=== PATIENT | female | born 1955 | race Caucasian/White ===

== ENCOUNTER 2020-03-09 14:12 | Inpatient (IN) | payer MEDICAID ==
[2020-03-09 21:14] VITALS: BP 120/80
[2020-03-09] MEDS ORDERED: Magnesium Hydroxide (MOM) 30 mL UDC PO PRN (23:56)
[2020-03-09] MEDS ORDERED: Maalox 30 mL Cup PO PRN (23:56)
[2020-03-10] MEDS ORDERED: MULTIVITAMIN PO SCH (09:00)
[2020-03-10] MEDS ORDERED: FOLIC ACID PO SCH (09:00)
[2020-03-10] MEDS ORDERED: IRON PO SCH (09:00)
--- NOTE | 2020-03-10 13:26 | History and Physical ---
History of Present Illness - HPI Chief Complaint: Psychosis HPI: * Transferred from [facility] Urgent [facility] * Admitted on 5149 due to danger to others Vital Signs: Last Vital Signs Temp 99 F 03/10/20 06:13 Pulse 88 03/10/20 06:13 Resp 18 03/10/20 06:13 BP 125/75 03/10/20 06:13 Pulse Ox 96 03/10/20 06:13 Past Medical History Cardiovascular: Report: No Pertinent Hx Pulmonary: Report: No Pertinent Hx GI: Report: GERD Psych: Report: Bipolar, Schizophrenia Musculoskeletal: Report: Osteoarthritis Rheumatologic: Report: No pertinent Hx Infectious Disease: Report: No Pertinent Hx Renal/: Report: No Pertinent Hx Endocrine: Report: No Pertinent Hx Dermatology: Report: No Pertinent Hx - Past Surgical History Past Surgical History: No pertinent Hx Social History Smoke: No Alcohol: None Drugs: None Lives: Other ([facility]) - Medications Home Medications: Home Medication Medication Instructions Recorded Type Levothyroxine [Synthroid] 0.075 mg PO DAILY 03/10/20 History [place] Carbonate [[place] 600 mg PO HS 03/10/20 History Carbonate ER] Multivitamin/Iron/Folic Acid 500 mg PO DAILY 03/10/20 History [Centrum Adults Tablet] OLANZapine [ZyPREXA] 10 mg PO HS 03/10/20 History Omeprazole 20 mg PO BID 03/10/20 History Omeprazole 20 mg PO BID PRN 03/10/20 History - Allergies Allergies/Adverse Reactions: Allergies Allergy/AdvReac Type Severity Reaction Status Date / Time No Known Allergies Allergy Verified 03/09/20 21:22 Review of Systems - Review of Systems Constitutional: Report: No Significant Eyes: Report: No Significant Respiratory: Report: No Significant Cardiovascular: Report: No Significant Gastrointestinal: Report: No Significant Genitourinary: Report: No Significant Musculoskeletal: Report: No Significant Skin: Report: No Significant Neurological: Report: No Significant Physical Exam - Physical Exam HEENT: Report: Ears Nose Throat within normal limits, Pharnyx within normal limits Neck: Report: Within normal limits Cardiovascular Systems: Report: Regular, Rate and Rhythm, no murmurs noted Respiratory: Report: Clear to Auscultation of lung meyer, Breath Sounds are within normal limits Abdomen: Report: Non-tender to palpation, Bowel Sounds are within normal limits Back: Report: Inspection of back is within normal limits. Extremities: Report: Non-tender to palpation., Patient had full range of motion , No pedal edema was noted on inspection Skin: Report: Color of skin is within normal limits, Warm, Dry, No Rashes noted of the skin Neuro/Psych: Report: A+Ox3, CN II-XII intact, No motor deficit, No sensory deficit - Assessment Assessment: * OA * Varicose Veins * GERD * Hypothyroidism * Acute Psychosis * Bipolar Disorder * Schizophrenia - Plan Plan: * Admiited to [facility] * Continue home meds * Psychiatry Consult * Obtain labs on Thursday Cranial Nerve Assessment - CRANIAL NERVES alcohol swab:: Yes Distinguishes movements in peripheral field.:: Yes up, down, sideways:: Yes on forehead, cheeks and chin, chews symmetrically:: Yes FACIAL VII: upper: Frowns Symmetrically:: Yes FACIAL VII: Lower: Smiles Symmetrically:: Yes both ears:: Yes GLOSS-PHARYNGEAL IX: Has gag reflex:: Yes VAGUS X: Can make guttural sounds:: Yes ACCESSORY XI: Shrugs shoulders symmetrically:: Yes tremors or fasciculation's:: Yes - MOTOR spasticity, cogwheel, atrophy, tremor, asterixis, other: Yes - COORDINATION Finger to nose, heel to painting, PALMOA, gait, Romberg: Yes - SENSORY signs, Brudzinski, Kernig, neck rigidity:: Yes - REFLEXES Brachioradials Right:: Yes Brachioradials Left:: Yes Biceps Right:: Yes Biceps Left:: Yes Triceps Right:: Yes Triceps Left:: Yes Knee Right:: Yes Knee Left:: Yes Ankle Right:: Yes Ankle Left:: Yes Babinski Right:: No Babinski Left:: No
--- NOTE | 2020-03-10 15:21 | Psychiatric Evaluation ---
DATE OF SERVICE: 03/09/2020 IDENTIFYING DATA: The patient is a 64-year-old woman, resident of a [facility]. Information obtained by directly interviewing the patient as well as reviewing the admission papers and they are reliable. JUSTIFICATION OF HOSPITALIZATION: The patient is admitted on 5150 as a danger to others. CHIEF COMPLAINT: "There is no reason for me to be in here. I need to go back to my board and care." HISTORY OF PRESENT ILLNESS: This is the first psychiatric hospitalization to [facility] for this patient who is reported to have been diagnosed to have bipolar disorder and had been on multiple medications. The patient is going on an elaborate way to describe that she missed the appointment and she did not want to see the nurse and she states that she has been accused of being aggressive. The patient is reporting that the board and transition of care specialist has been trying to butt into her business of medical problems and she did not like it. The patient has been downplaying her screaming and yelling. During the evaluation, the patient has been getting easily upset and stating that she did not want to take the Seroquel because the Seroquel makes her to scream and yell at night time. PAST PSYCHIATRIC HISTORY: Details are not known. MEDICAL HISTORY: Physical examination is requested by Dr. Connelly. SUBSTANCE ABUSE HISTORY: Denies. SOCIAL HISTORY: The patient is a resident of a [facility]. LEGAL PROBLEMS: None at this time. STRENGTH AND ASSETS: The patient is motivated. MENTAL STATUS EXAMINATION: The patient is a 64-year-old, looking her stated age, superficially cooperative. Eye contact is poor. Mood is irritable. Affect is constricted. Insight and judgment at this time are noted to be still impaired. Impulse control is noted to be limited. The patient is reported to be screaming and yelling and has been aggressive at the [facility]. The patient is alert and oriented to time, place, person, and situation. The patient is of average intelligence. 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 DIAGNOSTIC IMPRESSION: AXIS I: Bipolar disorder, mixed with psychotic symptoms. AXIS II: None. AXIS III: As per Dr. Connelly. IMMEDIATE TREATMENT PLAN: The patient is going to be started on the Zyprexa. The patient is going to be considered for mood ____. ESTIMATED LENGTH OF STAY: 3-5 days. DISCHARGE CRITERIA: When the patient is no longer a threat to self or others. [facility]# [id number]
[2020-03-10] MEDS: Pantoprazole 40 mg EC Tab PO SCH (16:46)
[2020-03-10] MEDS: Levothyroxine 0.075 Mg Tab PO SCH (16:48)
[2020-03-10] MEDS: OLANZapine 5 mg Oral Disintegrating Tab PO SCH (20:14)
[2020-03-11] MEDS: Pantoprazole 40 mg EC Tab PO SCH ×3 (06:36→16:58)
[2020-03-11] MEDS: Multivitamin Tab PO SCH (08:40)
[2020-03-11] MEDS: Levothyroxine 0.075 Mg Tab PO SCH (08:58)
[2020-03-11 11:09] LABS: CHOLESTEROL 140 mg/dL (<200); LDL CHOLESTEROL 62 mg/dL (0-129); TRIGLYCERIDES 311 mg/dL (30-150)
--- NOTE | 2020-03-11 17:24 | Progress Notes ---
DATE: 03/11/2020 SUBJECTIVE: Staff was spoken to. The patient is interviewed. Mood is noted to be irritable. Affect is constricted. Insight and judgment at this time are noted to be still impaired. Impulse control is noted to be limited. Coping skills are noted to be limited. The patient is very angry and upset for being in here. The patient is stating that she is not willing to go to the dining area because that is filthy. The patient has been stating that she needs to have a separate room for herself. The patient is presenting with a lot of grandiose delusions. The patient has no insight into her illness. ASSESSMENT: The patient is still not able to contract for safety. PLAN: To continue the patient with the supportive therapy, encouraged the patient to verbalize the concerns rather than to act out. The patient is still having grandiose delusions. Plan to continue the patient with the supportive therapy, encouraged the patient to verbalize the concerns rather than to act out. Plan to closely monitor and encouraged the patient to verbalize the concerns rather than to act out. JOB# [id number]
[2020-03-11] MEDS: OLANZapine 5 mg Oral Disintegrating Tab PO SCH (21:21)
[2020-03-12] MEDS: Pantoprazole 40 mg EC Tab PO SCH ×2 (06:43→19:39)
[2020-03-12] MEDS: Multivitamin Tab PO SCH (09:15)
[2020-03-12 11:30] LABS: % NEUTROPHILS 51.6 % (40-70); HEMOGLOBIN 14.2 g/dL (12.0-16.0); LYMPHOCYTES % (AUTO) 37.1 % (20.5-51.5); MEAN CORPUSCULAR HEMOGLOBIN 29 pg (27-31); MEAN CORPUSCULAR HGB CONC 32 % (32-36); MEAN CORPUSCULAR VOLUME 90 fL (79.0-98.0); PLATELET COUNT 237 K/uL (130-430); RED BLOOD COUNT 4.94 MIL/uL (4.2-6.2); RED CELL DISTRIBUTION WIDTH 15.8 % (9.0-15.0); WHITE BLOOD COUNT 6.2 K/uL (4.8-10.8)
[2020-03-12 11:31] LABS: BASOPHILS % (AUTO) 0.5 % (0.0-2.0); EOSINOPHILS # (AUTO) 0.2 K/uL (0.0-0.4); EOSINOPHILS % (AUTO) 2.6 % (0-4); LYMPHOCYTES # (AUTO) 2.3 K/uL (1.0-5.5); MONOCYTES # (AUTO) 0.5 K/uL (0.0-1.0); MONOCYTES % (AUTO) 8.2 % (1.7-9.3); NEUTROPHILS # (AUTO) 3.2 K/uL (1.8-7.7)
[2020-03-12] MEDS: Levothyroxine 0.075 Mg Tab PO SCH (11:52)
[2020-03-12 14:15] LABS: BILIRUBIN,TOTAL 0.3 mg/dL (0.0-1.0); CALCIUM SERUM 10.2 mg/dL (8.4-10.2); CREATININE - SERUM 1.05 mg/dL (0.70-1.30); TOTAL PROTEIN,SERUM 7.5 g/dL (6.4-8.3)
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
[2020-03-12] MEDS: OLANZapine 5 mg Oral Disintegrating Tab PO SCH (21:03)
[2020-03-12 23:06] LABS: A1C 5.9 % (4.8-5.6)
[2020-03-13] MEDS: Pantoprazole 40 mg EC Tab PO SCH ×2 (06:42→15:39)
[2020-03-13] MEDS: Levothyroxine 0.075 Mg Tab PO SCH (06:46)
[2020-03-13] MEDS: Multivitamin w/ Minerals Tab PO SCH (08:03)
[2020-03-13] MEDS: OLANZapine 10 mg Oral Disintegrating Tab PO SCH (20:18)
--- NOTE | 2020-03-13 21:26 | Progress Notes ---
DATE: 03/13/2020 PSYCHIATRIC PROGRESS NOTE SUBJECTIVE: Staff was spoken to. The patient is interviewed. Mood is noted to be irritable. Affect is constricted. The patient is stating that she has been trying to work with the social insurance administrator to look into going back to the same board and care. The patient is stating that she made her room as a palace, but no one likes her over there. She had been having arguments with other people. Coping skills at this time are noted to be still poor. Mood swings are still concerns and we are going to be continuing the patient with the olanzapine, but the patient is stating that she does not have any problems and she is not willing to take anything for mood stabilization and hence I am increasing the dose on the olanzapine to 10 mg at bedtime and I am going to be encouraging the patient to verbalize the concerns rather than to act out. So far, no side effects to the medications are noted. JOB# [id number]
[2020-03-14] MEDS: Levothyroxine 0.075 Mg Tab PO SCH (06:36)
[2020-03-14] MEDS: Pantoprazole 40 mg EC Tab PO SCH ×2 (06:36→15:34)
[2020-03-14] MEDS: Multivitamin w/ Minerals Tab PO SCH (08:13)
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
[2020-03-14] MEDS: OLANZapine 10 mg Oral Disintegrating Tab PO SCH (21:31)
[2020-03-15] MEDS: Levothyroxine 0.075 Mg Tab PO SCH (07:00)
[2020-03-15] MEDS: Pantoprazole 40 mg EC Tab PO SCH (07:00)
[2020-03-15] MEDS: Multivitamin w/ Minerals Tab PO SCH (08:25)
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
[2020-03-15] MEDS: OLANZapine 10 mg Oral Disintegrating Tab PO SCH (21:40)
[2020-03-16] MEDS: Multivitamin w/ Minerals Tab PO SCH (08:33)
[2020-03-16] MEDS: Levothyroxine 0.075 Mg Tab PO SCH (08:33)
[2020-03-16] MEDS: Pantoprazole 40 mg EC Tab PO SCH (08:33)
[2020-03-16] MEDS: OLANZapine 10 mg Oral Disintegrating Tab PO SCH ×2 (10:04→16:35)
--- NOTE | 2020-03-16 13:52 | Progress Notes ---
DATE: 03/16/2020 SUBJECTIVE: Staff was spoken to. The patient is interviewed. Mood is noted to be irritable. Affect is constricted. The patient's insight and judgment are noted to be still impaired. Impulse control is noted to be limited. The patient is refusing to take any mood stabilizers. The patient is stating that they are going to be messing up her liver. The patient is stating that she is okay with the Zyprexa and hence it is decided to increase the dose on the Zyprexa to 10 mg twice a day because the patient has been still presenting with paranoid delusions and grandiose delusions. The patient's behavior is strictly a danger to others at this time and hence I am increasing the dose and the patient is going to be followed up with the supportive therapy. JOB# [id number]
[2020-03-17] MEDS: Levothyroxine 0.075 Mg Tab PO SCH (06:54)
[2020-03-17] MEDS: Pantoprazole 40 mg EC Tab PO SCH (06:54)
[2020-03-17] MEDS: Multivitamin w/ Minerals Tab PO SCH (08:17)
[2020-03-17] MEDS: OLANZapine 10 mg Oral Disintegrating Tab PO SCH ×2 (08:17→16:22)
--- NOTE | 2020-03-17 14:09 | Progress Notes ---
DATE: 03/17/2020 PSYCHIATRIC PROGRESS NOTE SUBJECTIVE: Staff was spoken to. The patient is interviewed. Mood is noted to be irritable. Affect is constricted. The patient's insight and judgment are noted to be very much impaired. Impulse control is noted to be limited. The patient has been placed on Zyprexa. So far, she has been able to tolerate the medication. Zyprexa is being given at 10 mg twice a day. The patient continues to be irritable, but aggressive behavior seems to be coming down. Mood swings are a concern. No side effects to the medications are noted. She has been refusing to take mood stabilizers. The patient is stating that she is not ready to go back because she has been having some problem with the board and intensive care medicine specialist. ASSESSMENT: The patient is still psychotic and impulsive. PLAN: To continue the patient with the supportive therapy. I encouraged the patient to verbalize the concerns rather than to act out. JOB# [id number] [facility]US[facility]
[2020-03-18] MEDS: Pantoprazole 40 mg EC Tab PO SCH (06:30)
[2020-03-18] MEDS: Levothyroxine 0.075 Mg Tab PO SCH (06:30)
[2020-03-18] MEDS: Multivitamin w/ Minerals Tab PO SCH (08:41)
[2020-03-18] MEDS: OLANZapine 10 mg Oral Disintegrating Tab PO SCH ×2 (08:41→17:08)
--- NOTE | 2020-03-18 19:42 | Progress Notes ---
DATE: 03/18/2020 SUBJECTIVE: Staff was spoken to. The patient is interviewed. Mood is noted to be irritable. Affect is constricted. The patient is still going a tangent. The patient has been having flight of ideas. Speech is noted to be pressured. The patient has been convinced to be on the mood stabilizers, but the patient has consistently been refusing. The patient has been placed on 10 mg twice a day of the Zyprexa and the patient still seems to be having mood swings and hence I have decided to start the patient on Depakote 500 mg twice a day. PLAN: To closely monitor the patient. I encouraged the patient to verbalize the concerns rather than to act out. JOB# [id number]
[2020-03-19] MEDS: Levothyroxine 0.075 Mg Tab PO SCH (06:31)
[2020-03-19] MEDS: Pantoprazole 40 mg EC Tab PO SCH (06:31)
[2020-03-19] MEDS: Multivitamin w/ Minerals Tab PO SCH (08:23)
[2020-03-19] MEDS: OLANZapine 10 mg Oral Disintegrating Tab PO SCH (08:23)
--- NOTE | 2020-03-19 20:11 | Progress Notes ---
DATE: 03/19/2020 SUBJECTIVE: Staff was spoken to. The patient is interviewed. Mood is noted to be anxious. The patient's insight and judgment are noted to be improving. Impulse control seems to be impaired. The patient has been closely monitored for 10 days and the patient has been complaining to the medications. No side effects to the medications are noted. However, the patient tends to be having a pressured speech. The patient is not presenting with any threats to harm self or others and hence it is decided to discharge the patient back to the board and care today. JOB# [id number]
--- NOTE | 2020-03-19 20:50 | Discharge Summary ---
DATE OF DISCHARGE: 03/19/2020 IDENTIFYING DATA: The patient is a 64-year-old resident of a [facility]. JUSTIFICATION OF HOSPITALIZATION: The patient is admitted on 5150 as a danger to others. ADMISSION DIAGNOSES: AXIS I: Bipolar disorder, mixed with psychotic symptoms. AXIS II: None. AXIS III: As per Dr. Connelly. DISCHARGE DIAGNOSES: AXIS I: Bipolar disorder, mixed with psychotic symptoms. AXIS II: None. AXIS III: As per Dr. Connelly. For detailed history of present illness please refer to the 03/10/2020 dictation done by me. HOSPITAL COURSE AND RESPONSE TO TREATMENT: The patient has been observed on inpatient unit, provided with supportive psychotherapy. Blood work done at the hospitalization has been reviewed. No major interventions were needed and the patient has been placed on Zyprexa that was gradually increased to 10 mg twice a day. The patient refused to take any of the mood stabilizers until the end and finally the patient was placed on Depakote that was given at 500 mg twice a day. With the medications, the patient was observed, doing fairly well and hence the patient was finally discharged with recommendation that she is going to be seeking treatment on an outpatient basis. The patient has been discharged to [facility]. JOB# [id number]
== END 2020-03-19 14:20 | disposition home or self-care (01) | DRG 885 ==
LOC: GERO 20:45
PROVIDERS: ADMIT Psychiatry & Neurology Psychiatry; ATTEND Psychiatry & Neurology Psychiatry
DX: F31.64 Bipolar disorder, current episode mixed, severe, with psychotic features (principal); E44.1 Mild protein-calorie malnutrition; M19.90 Unspecified osteoarthritis, unspecified site; I83.90 Asymptomatic varicose veins of unspecified lower extremity; K21.9 Gastro-esophageal reflux disease without esophagitis; E03.9 Hypothyroidism, unspecified; F29 Unspecified psychosis not due to a substance or known physiological condition; Z68.28 Body mass index [BMI] 28.0-28.9, adult
CPT/HCPCS: 36415-UA; 80053-TC; 80061-TC; 83036-90; 85025-TC; G0410; Z7610